=== PATIENT | female | born 1970 | race Caucasian/White ===

== ENCOUNTER 2024-11-26 21:50 | Emergency (ER) | payer MEDICAID, SELFPAY ==
--- NOTE | 2024-11-26 21:52 | EKG_ITS ---
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
[2024-11-26 22:03] VITALS: BP 143/86; PULSE 92; RESP 20; TEMP 36.8; O2SAT 96; BMI 33.1
--- NOTE | 2024-11-26 22:07 | XR_ITS ---
Examination: PA lateral chest 2 views TECHNIQUE: Upright PA and lateral chest 2 views Date and time: November 26, 2024, 10:17 PM Comparison July 19, 2013. INDICATIONS: Chest pain today. FINDINGS: Normal heart size Increased AP dimension chest with mild hyperexpansion. Small retrocardiac gastric hernia. Mild kyphosis dorsal spine. No pneumonia or pulmonary edema. IMPRESSION: Mild hyperexpansion. No pneumonia or pulmonary edema
--- NOTE | 2024-11-26 22:13 | PD.EDCHEST ---
ED Chest Pain RME/HPI General Chief Complaint: Chest Pain Stated Complaint: CHEST/EPIGASTRIC PAIN RADIATING TO BACK Time Seen by Provider: 11/26/24 21:57 Arrival date/time: 11/26/24 21:50 RME / HPI RME / HPI narrative: The patient is a 54-year-old female with significant past medical history of hypertension, MVP, s/p gastric bypass surgery, past medical history of diabetes mellitus type 2 resolved after gastric bypass surgery, and gastric upset presented to ED with chief complaint of lower chest pain for past 30 minutes. The patient reported that her pain is 8/10 in intensity, radiating to the back and left shoulder, associated with gastric upset and mild dizziness. The patient denied any headache, SOB, sore throat, lower abdominal pain, any changes in bowel or bladder habit, nausea or vomiting, fever or chills. Related Data Home Medications ?Medication ?Instructions ?Recorded ?Confirmed atenolol 25 mg tablet 25 mg PO QDAY #0 tabs 06/23/15 02/23/18 venlafaxine 75 mg capsule,extended 75 mg PO QDAY 01/28/18 02/23/18 release 24 hr (Effexor XR) ziprasidone HCl 20 mg capsule 20 mg PO BID 01/28/18 02/23/18 (Geodon) Previous Rx's ?Medication ?Instructions ?Recorded omeprazole 20 mg capsule,delayed 20 mg PO QDAY #30 caps 01/28/18 release dicyclomine 20 mg tablet 20 mg PO QID PRN abdominal pain 01/20/24 #14 tabs ondansetron 4 mg disintegrating 4 mg PO TID PRN nausea and 01/20/24 tablet vomiting #14 tabs pantoprazole 40 mg tablet,delayed 40 mg PO QDAY #28 tabs 11/27/24 release Allergies Allergy/AdvReac Type Severity Reaction Status Date / Time No Known Allergies Allergy Verified 11/26/24 21:52 Review of Systems Review of Systems Systems Reviewed: All systems reviewed, normal except as documented ED Exam Narrative Physical exam: General: Middle-aged, cooperative female, no acute distress, Alert and Oriented x 3, appeared in pain HEENT: Moist mucous membranes, oropharynx clear Neck: Supple, No masses, No JVD CVS: S1S2 Regular rate and rhythm, No murmurs, rubs or gallops Lungs: Clear to auscultation with no accessory use, no wheeze no rhonchi Abd: Soft, NT/ND, +BS, no organomegaly Ext: No edema, warm and well perfused Skin: No rash Psych: Appeared in pain Course Quality Measures none Orders Category Date Time Status EKG (ED ONLY) *Do not use* NOW Care 11/26/24 21:52 Completed EKG (ED ONLY) *Do not use* NOW Care 11/26/24 22:13 Completed EKG (ED Only) Stat Exams 11/26/24 21:52 Draft EKG (ED Only) Stat Exams 11/26/24 22:12 Ordered XR chest 2V Stat Exams 11/26/24 22:07 Completed B-Type Natriuretic Peptide Stat Lab 11/26/24 22:15 Completed CBC Stat Lab 11/26/24 22:15 Completed Comprehensive Metabolic Panel Stat Lab 11/26/24 22:15 Completed Drug Screen,Urine Stat Lab 11/26/24 23:40 Completed LDH (Lactate Dehydrogenase) Stat Lab 11/26/24 22:15 Completed Magnesium Stat Lab 11/26/24 22:15 Completed Partial Thromboplastin Time Stat Lab 11/26/24 22:15 Completed Prothrombin Time with INR Stat Lab 11/26/24 22:15 Completed Troponin I Stat Lab 11/26/24 22:15 Completed Urinalysis Stat Lab 11/26/24 23:40 Completed Pantoprazole Inj [Protonix Inj] Med 11/26/24 22:08 Discontinued 40 mg IVP X1 ONE Pantoprazole [Protonix] Med 11/26/24 23:09 Discontinued 40 mg PO X1 ONE Vital Signs Vital signs: Vital Signs Temperature 98.3 F 11/26/24 22:03 Pulse Rate 92 11/26/24 22:03 Respiratory Rate 20 11/26/24 22:03 Blood Pressure 143/86 H 11/26/24 22:03 Pulse Oximetry (%) 96 11/26/24 22:03 Oxygen Delivery Method Room Air 11/26/24 22:03 Chest Pain MDM Narrative MDM Narrative:: The patient is a 54-year-old female with significant past medical history of hypertension, MVP, s/p gastric bypass surgery, past medical history of diabetes mellitus type 2 resolved after gastric bypass surgery, and gastric upset presented to ED with chief complaint of lower chest and epigastric pain for past 30 minutes. The patient reported that her pain is 8/10 in intensity, radiating to the back and left shoulder, associated with gastric upset and mild dizziness. The patient denied any headache, SOB, sore throat, lower abdominal pain, any changes in bowel or bladder habit, nausea or vomiting, fever or chills. Her vitals were significant for BP 143/86, pulse 92, RR 20, temperature 98.3, saturating 96% on room air. Labs revealed CBC fairly stable, coagulation panel WNL, CMP fairly stable with AST 68, LDH 199, troponin less than 0.002, BNP less than 20, UA revealed turbid urine, leukocyte esterase positive, WBC 15, urine bacteria 3+ but denied any urinary symptoms, U-Tox of positive for methamphetamine. EKG revealed sinus rhythm, chest x-ray revealed mild hyperexpansion, but negative for CHF or pneumonia. Patient data External records reviewed:: [facility] previous records Clinical information provided by:: patient Social determinants that could affect healthcare access:: none Patient has the following chronic illnesses:: See above How is presenting disease/condition affected by chronic disease/condition?: caused by Evaluation data The following diagnostics were reviewed and interpreted by me:: lab results, radiology exam(s) and EKG tracing(s) Lab and/or radiology exams considered but not ordered:: None Interpretation Summary: See above Medications / Prescriptions Medications or Prescriptions considered but not ordered:: None Medication administrations:: Medication Administration History Discontinued Medications Pantoprazole Sodium (Pantoprazole Inj 40 Mg Vial) 40 mg IVP X1 ONE Stop: 11/26/24 22:09 Last Admin: 11/26/24 23:25 Dose: Not Given Documented By: Non-Admin Reason: Cancelled by Provider Pantoprazole Sodium (Pantoprazole 40 Mg Tablet) 40 mg PO X1 ONE Stop: 11/26/24 23:10 Last Admin: 11/26/24 23:23 Dose: 40 mg Documented By: See above Consultations Consultation(s) initiated? (list below): No Diagnosis Chest Pain Differential Diagnosis: pneumothorax, stable angina, atypical chest pain, costochondritis and other Most likely diagnosis given after review of the tests above:: Retrocardiac gastric hernia Admission Indicated Admission indicated?: not indicated Admission Request Was there a request for admission?: No Disposition Plan Disposition Plan: Discharge Discharge Attestation Discharge Attestation: The patient and all family members were given an opportunity to ask questions and understood the discharge instructions. Discharge instructions specifically effects, indications for sooner follow up or return to the emergency department, and the expected course of current diagnosis. Patient condition: Stable Discharge Plan Plan Patient Disposition: HOME (Self Care) Prescriptions/Referrals Prescriptions/Med Rec: New pantoprazole 40 mg tablet,delayed release (DR/EC) 40 mg PO QDAY Qty: 28 0RF No Action atenolol 25 mg Tablet 25 mg PO QDAY Qty: 0 venlafaxine [Effexor XR] 75 mg Capsule,Extended Release 24hr 75 mg PO QDAY ziprasidone HCl [Geodon] 20 mg Capsule 20 mg PO BID omeprazole 20 mg capsule,delayed release(DR/EC) 20 mg PO QDAY Qty: 30 0RF Rx Instructions: swallow whole; do not crush, chew, dissolve, cut, break dicyclomine 20 mg tablet 20 mg PO QID PRN (Reason: abdominal pain) Qty: 14 0RF ondansetron 4 mg tablet,disintegrating 4 mg PO TID PRN (Reason: nausea and vomiting) Qty: 14 0RF Referrals: Gilbert Negron PA-C [Primary Care Provider] - In 1 week Problem List Clinical Impression: Thoracic stomach hernia, Methamphetamine abuse Patient/Caregiver Discharge Instructions Discharge Activity: activity as tolerated Education Materials: Addiction: Getting Help, Understanding Methamphetamine ..., ED Hiatal Hernia Additional Instructions: Please follow-up with your PCP within 1 week of discharge You have been started on: - Pantoprazole 40mg daily for 28 days -Recommended to return back to emergency department if your symptoms persists or worsens Print Language: [place]ese Stand Alone Forms: Georgina Award Info., Patient Portal Info Letter MD Attestation Attestation I, Dr. Coe, have reviewed the history, exam, and assessment of the patient. I have evaluated the patient independently and agree with the plan of care documented by the resident Dr. Agee. All diagnostic studies were reviewed and discussed. I confirm the diagnosis as documented by the resident. I was present during the Medical Decision Making for this patient. The patient?s plan of care was created between myself and the resident and consistent with our discussion of the patient?s case.
[2024-11-26 22:23] LABS: Basophils % (Auto) 1 % (0-2.5); Eosinophils # (Auto) 0.1 Thou/mm3 (0.0-0.5); Eosinophils % (Auto) 2 % (0-10); Hematocrit 35.5 % (36.0-46.0); Hemoglobin 12.7 g/dL (12.0-16.0); Immature Granulocytes % (Auto) 0 % (0-0); Immature Granulocytes Auto 0.02 Thou/mm3 (0.00-0.00); Lymphocytes # (Auto) 1.6 Thou/mm3 (1.0-4.8); Lymphocytes % (Auto) 32 % (10-50); Mean Corpuscular HGB Conc 35.8 g/dl (31.0-37.0); Mean Corpuscular Hemoglobin 32.6 pg (25.0-35.0); Mean Corpuscular Volume 91 fL (80-100); Monocytes # (Auto) 0.4 Thou/mm3 (0.0-0.8); Monocytes % (Auto) 8 % (0-12); Neutrophils # (Auto) 2.8 Thou/mm3 (1.8-7.7); Neutrophils % (Auto) 56 % (37-80); Nucleated Red Blood Cell % 0 /100 WBC (0); Platelet Count 149 Thou/mm3 (140-440); RDW Standard Deviation 40.9 fL (36.4-46.3)
[2024-11-26 22:39] LABS: Partial Thromboplastin Time 26.3 Seconds (22.0-36.0); Prothrombin Time 11.2 Seconds (9.0-12.2)
[2024-11-26 22:46] LABS: Alanine Aminotransferase 44 U/L (10-49); Albumin, Serum 4.4 gm/dL (3.5-5.0); Albumin/Globulin Ratio 1.4 (1.2-2.2); Alkaline Phosphatase 93 U/L (46-116); Anion Gap 11 (7-16); Aspartate Amino Transferase 68 U/L (0-34); BUN/Creatinine Ratio 18 Ratio (12-20); Bilirubin,Total 0.6 mg/dL (0.3-1.2); Blood Urea Nitrogen 11 mg/dL (9-23); Calcium 8.6 mg/dL (8.3-10.6); Calcium (Corrected) 8.6 mg/dL (8.5-10.1); Carbon Dioxide 25.3 mMol/L (20.0-31.0); Chloride 106 mMol/L (98-107); Creatinine (Component) 0.6 mg/dL (0.6-1.3); Estimated Creatinine Clearance 117.6 mL/min (>60); Globulin 3.1 gm/dL (2.3-3.5); Glucose 104 mg/dL (74-106); LDH (Lactate Dehydrogenase) 199 U/L (120-246); Osmolality,Calculated 282 (275-295); Potassium 3.8 mMol/L (3.4-5.1); Sodium 142 mMol/L (136-145); Total Protein 7.5 gm/dL (5.7-8.2); Troponin I < 0.002 ng/mL (0.0-0.045); eGFR > 60 See Note
[2024-11-26 22:54] LABS: B-Type Natriuretic Peptide < 20 pg/mL (0-100)
[2024-11-26] MEDS: PANTOPRAZOLE 40 MG TABLET PO (23:23)
[2024-11-26 23:48] LABS: Collection Type, Urine Clean Catch
[2024-11-27 00:08] LABS: Amphetamine/Methamp Scrn,U Positive (Negative); Barbiturate Screen,Urine Negative (Negative); Benzodiazepines Screen,Urine Negative (Negative); Benzoylecgonine Screen, Ur Negative (Negative); Fentanyl Screen,Urine Negative (Negative); Opiate Screen,Urine Negative (Negative); THC Screen,Urine Negative (Negative)
[2024-11-27 00:10] LABS: Bilirubin,Urine Negative (Negative); Blood,Urine Negative (Negative); Clarity,Urine Turbid (Clear/Hazy); Color,Urine Yellow (Lt Yel-Yel); Glucose, Urine Negative (Negative); Ketones,Urine Negative (Negative); Leukocyte Esterase,Urine Positive (Negative); Nitrite,Urine Negative (Negative); PH,Urine 5.5 (5.0-7.0); Protein,Urine Negative (Neg - Trace); Specific Gravity,Urine 1.024 (1.001-1.035)
[2024-11-27 00:14] LABS: WBC,Urine 15 /hpf (0-5)
[2024-11-27 00:15] LABS: Bacteria,Urine 3+; RBC,Urine 3 /hpf (0-3); Squamous Epithelial Cell,Urine 24 /hpf (0-5)
== END 2024-11-27 03:22 | disposition home or self-care (01) ==
PROVIDERS: Emergency Provider Student in an Organized Health Care Education/Training Program; PCP Physician Assistant
DX: K44.9 Diaphragmatic hernia without obstruction or gangrene (principal); F15.10 Other stimulant abuse, uncomplicated
CPT/HCPCS: 36415; 71046; 80053; 80307; 81001; 83615; 83735; 83880; 84484; 85025; 85610; 85730; 93005; 99283; A9270

== ENCOUNTER 2025-03-07 16:09 | Emergency (ER) | payer MEDICAID, SELFPAY ==
[2025-03-07 16:12] VITALS: PULSE 110
--- NOTE | 2025-03-07 16:16 | EKG_ITS ---
[facility] Test Date: 2025-03-07 Pat Name: SONY CATALAN Department: Room: - Gender: Female General Practice: : 1970 Requested By: ED Temporary Provider Order Number: [id number] Reading MD: ED Temporary Provider Measurements Intervals [place] Rate: 100 P: -7 [place]: 152 QRS: -15 QRSD: 98 T: -1 QT: 343 QTc: 444 Interpretive Statements SINUS TACHYCARDIA MODERATE VOLTAGE CRITERIA FOR LVH, CONSIDER NORMAL VARIANT [MEETS CRITERIA IN ONE OF: R(aVL), S(V1), R(V5), R(V5/V6)+S(V1)] ABNORMAL RHYTHM ECG Compared to ECG 11/26/2024 22:06:40 Sinus rhythm no longer present /store/S0/[id number]
[2025-03-07 16:26] VITALS: BP 150/90; PULSE 100; RESP 18; TEMP 36.9; O2SAT 98
[2025-03-07] MEDS: ONDANSETRON ODT 4 MG TABRAP PO (16:44)
[2025-03-07 17:10] LABS: Basophils # (Auto) 0.1 Thou/mm3 (0.0-0.2); Basophils % (Auto) 1 % (0-2.5); Eosinophils # (Auto) 0.1 Thou/mm3 (0.0-0.5); Eosinophils % (Auto) 2 % (0-10); Hematocrit 42.4 % (36.0-46.0); Hemoglobin 14.8 g/dL (12.0-16.0); Immature Granulocytes Auto 0.01 Thou/mm3 (0.00-0.00); Lymphocytes # (Auto) 1.7 Thou/mm3 (1.0-4.8); Lymphocytes % (Auto) 36 % (10-50); Mean Corpuscular HGB Conc 34.9 g/dl (31.0-37.0); Mean Corpuscular Hemoglobin 32.7 pg (25.0-35.0); Mean Corpuscular Volume 94 fL (80-100); Monocytes # (Auto) 0.4 Thou/mm3 (0.0-0.8); Monocytes % (Auto) 9 % (0-12); Neutrophils # (Auto) 2.5 Thou/mm3 (1.8-7.7); Neutrophils % (Auto) 52 % (37-80); Nucleated Red Blood Cell # 0.00 Thou/mm3 (0.00-0.00); Nucleated Red Blood Cell % 0 /100 WBC (0); Platelet Count 182 Thou/mm3 (140-440); RDW Standard Deviation 44.8 fL (36.4-46.3); Red Blood Count 4.53 Miln/mm3 (4.00-5.20); White Blood Count 4.8 Thou/mm3 (3.6-11.0)
[2025-03-07 17:33] LABS: Alanine Aminotransferase 66 U/L (10-49); Albumin, Serum 4.7 gm/dL (3.5-5.0); Albumin/Globulin Ratio 1.5 (1.2-2.2); Alkaline Phosphatase 102 U/L (46-116); Anion Gap 15 (7-16); Aspartate Amino Transferase 103 U/L (0-34); BUN/Creatinine Ratio 10 Ratio (12-20); Bilirubin,Total 1.0 mg/dL (0.3-1.2); Blood Urea Nitrogen 8 mg/dL (9-23); Calcium 10.2 mg/dL (8.3-10.6); Calcium (Corrected) 10.2 mg/dL (8.5-10.1); Carbon Dioxide 24.1 mMol/L (20.0-31.0); Chloride 104 mMol/L (98-107); Creatine Kinase 61 U/L (34-171); Creatinine (Component) 0.8 mg/dL (0.6-1.3); Globulin 3.2 gm/dL (2.3-3.5); Glucose 98 mg/dL (74-106); Osmolality,Calculated 283 (275-295); Potassium 4.0 mMol/L (3.4-5.1); Sodium 143 mMol/L (136-145); Total Protein 7.9 gm/dL (5.7-8.2); eGFR > 60 See Note
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
== END 2025-03-07 21:00 | disposition home or self-care (01) ==
PROVIDERS: Emergency Provider Emergency Medicine; PCP Family Medicine
DX: E86.0 Dehydration (principal); Z59.00 Homelessness unspecified; I34.1 Nonrheumatic mitral (valve) prolapse
CPT/HCPCS: 36415; 80053; 81001; 82550; 85025; 93005; 99283; Q0162

== ENCOUNTER 2025-05-24 18:35 | Emergency (ER) | payer MEDICAID, SELFPAY ==
[2025-05-24 19:41] VITALS: BP 141/91; PULSE 88; RESP 18; TEMP 36.8; O2SAT 96; BMI 31.6
--- NOTE | 2025-05-24 19:49 | XR_ITS ---
Examination: Hand, right 3 views Technique: Hand AP, oblique, lateral 3 views Date and time of exam: May 24, 2025, 2007 hours INDICATIONS: Dog bite to the hand today, pain and swelling. FINDINGS: No fracture. No dislocation No opaque foreign body IMPRESSION: No opaque foreign body
[2025-05-24] MEDS: HYDROcodone/APAP 5/325 TABLET 1 TAB PO (19:56)
[2025-05-24] MEDS: AMOXICILLIN/POT CLAV 875 TABLET 1 TAB PO (19:56)
[2025-05-24] MEDS: DIPHTH,PERTUSS(ACELL),TET VAC 0.5 ML SYR- ADULT IMi (19:57)
--- NOTE | 2025-05-24 20:45 | PD.EDHAND ---
Upper Extremity Injury RME/HPI General Chief Complaint: Hand/Wrist Problems Stated Complaint: RIGHT HAND INJURY,BITE FROM DOG TO LEFT HAND Time Seen by Provider: 05/24/25 19:49 Arrival date/time: 05/24/25 18:35 51F with history of DM and psych presents to ED with R hand (that radiates up) pain after she was tried to break apart a dog fight between her dog and another dog. She got bit on her L hand. Patient has not had a tetanus shot in the past 5 years. Limitations: no limitations Related Data Home Medications ?Medication ?Instructions ?Recorded ?Confirmed atenolol 25 mg tablet 25 mg PO QDAY #0 tabs 06/23/15 02/23/18 venlafaxine 75 mg capsule,extended 75 mg PO QDAY 01/28/18 02/23/18 release 24 hr (Effexor XR) ziprasidone HCl 20 mg capsule 20 mg PO BID 01/28/18 02/23/18 (Geodon) Previous Rx's ?Medication ?Instructions ?Recorded omeprazole 20 mg capsule,delayed 20 mg PO QDAY #30 caps 01/28/18 release dicyclomine 20 mg tablet 20 mg PO QID PRN abdominal pain 01/20/24 #14 tabs ondansetron 4 mg disintegrating 4 mg PO TID PRN nausea and 01/20/24 tablet vomiting #14 tabs pantoprazole 40 mg tablet,delayed 40 mg PO QDAY #28 tabs 11/27/24 release amoxicillin 875 mg-potassium 1 tab PO BID 7 days #14 tabs 05/24/25 clavulanate 125 mg tablet hydrocodone 5 mg-acetaminophen 325 1 tab PO BID PRN pain #7 tabs 05/24/25 mg tablet Allergies Allergy/AdvReac Type Severity Reaction Status Date / Time No Known Allergies Allergy Verified 05/24/25 18:38 Review of Systems Review of Systems Systems Reviewed: All systems reviewed, normal except as documented Musculoskeletal Musculoskeletal: Reports as per HPI and Reports arthralgias Integumentary/Breasts Skin/Breast: Reports as per HPI and Reports skin pain Past Medical History Past Medical History CARDIAC: Positive Cardiac Disorders and Hypertension; Negative Congestive Heart Failure RESPIRATORY: Negative Chronic Obstructive Pulmonary Disease (COPD) or Asthma GASTROINTESTINAL: Positive Obesity GENITOURINARY: Negative Renal Disease ENDOCRINE: Negative Diabetes Mellitus Type 1 or Diabetes Mellitus Type 2 HEMATOLOGIC: Negative Sickle Cell Disease PSYCHO/SOCIAL: Positive Depression and Anxiety Surgical History SURGICAL: Positive Abdominal Surgery, Gastric Bypass Surgery and Hysterectomy Social History SMOKING STATUS: Former smoker SUBSTANCE USE: methamphetamine ED Exam General Limitations: Present no limitations General appearance: Present alert and in no apparent distress Head Head exam: Present atraumatic Neck Neck exam: Present normal inspection, full ROM and trachea midline Chest Chest inspection: Present normal inspection and symmetric chest wall rise Expanded Upper Extremity Exam Hand exam: Present full ROM, laceration (L hand; more puncture wound) and deformity (R thumb) Neurological Exam Neurological exam: Present alert and oriented X3 Psychiatric Psychiatric exam: Present normal affect and normal mood Skin Skin exam: Present warm, dry, intact and normal color Course Quality Measures none Orders Category Date Time Status Wound Care NOW Care 05/24/25 19:49 Active sling [Splint / Immobilizer] STAT Care 05/24/25 21:16 Active XR hand comp RT min 3V Stat Exams 05/24/25 19:49 Completed Amoxicillin/Pot Clav 875 [Augmentin 875] Med 05/24/25 19:49 Discontinued 1 tab PO X1 ONE HYDROcodone*/APAP 5/325 [[place] 5/325] Med 05/24/25 19:49 Discontinued 1 tab PO X1 ONE TET,DIP/PERT AC (Adult)-Tdap [Boostrix Adult (Tdap) Med 05/24/25 19:49 Discontinued Vacc] 0.5 ml IMI .ONCE ONE Vital Signs Vital signs: Vital Signs Temperature 98.3 F 05/24/25 19:41 Pulse Rate 88 05/24/25 19:41 Respiratory Rate 18 05/24/25 19:41 Blood Pressure 141/91 H 05/24/25 19:41 Pulse Oximetry (%) 96 05/24/25 19:41 Oxygen Delivery Method Room Air 05/24/25 19:41 O2 at 96% on RA and WNLs Extremity Injury MDM Narrative MDM Narrative:: 51F with history of DM and psych presents to ED with R hand (that radiates up) pain after she was tried to break apart a dog fight between her dog and another dog. She got bit on her L hand. Patient has not had a tetanus shot in the past 5 years. Physical exam reveals R hand deformity, primarily around thumb. However, when compression of proximal RUE, there is some pain radiation to R pinky, but no tenderness at site of compression. ROM limited. Small puncture wound on L hand. XR reveals no fx or dislocation. Patient clarified she's unable to feel her R pinky/ring finger since previous injury on proximal RUE. Repeat physical exam reveals normal color and intact cap refill. Wound cleaned/bandaged. Given Tdap, ABX prophylaxis, sling, counselor camp and pain control. Counseled may need MRI for possible exacerbation of previous jury of distal RUE. Patient data External records reviewed:: [facility] previous records Clinical information provided by:: patient Social determinants that could affect healthcare access:: mental health Patient has the following chronic illnesses:: DM How is presenting disease/condition affected by chronic disease/condition?: exacerbated by Evaluation data The following diagnostics were reviewed and interpreted by me:: radiology exam(s) Lab and/or radiology exams considered but not ordered:: ordered Interpretation Summary: above Medications / Prescriptions Medications or Prescriptions considered but not ordered:: ordered Medication administrations:: Medication Administration History Discontinued Medications Hydrocodone Bitart/Acetaminophen (Hydrocodone/Apap 5/325 Tablet) 1 tab PO X1 ONE Stop: 05/24/25 19:50 Last Admin: 05/24/25 19:56 Dose: 1 tab Documented By: SARA Amoxicillin/Clavulanate Potassium (Amoxicillin/Pot Clav 875 Tablet) 1 tab PO X1 ONE Stop: 05/24/25 19:50 Last Admin: 05/24/25 19:56 Dose: 1 tab Documented By: SARA Diphtheria/Tetanus/Acell Pertussis (Diphth,Pertuss(Acell),Tet Vac 0.5 Ml Syr- Adult) 0.5 ml IMi .ONCE ONE Stop: 05/24/25 19:50 Last Admin: 05/24/25 19:57 Dose: 0.5 ml Documented By: SARA above Consultations Consultation(s) initiated? (list below): No Diagnosis Upper Extremity Injury Differential Diagnosis: sprain and strain of wrist, fracture of wrist, finger sprain, dislocation of finger, Colles' fracture, fracture of hand, dislocation of shoulder, fracture of humerus, fracture of clavicle and other (dog bite, soft tissue injury) Most likely diagnosis given after review of the tests above:: dog bite and soft tissue injury Admission Indicated Admission indicated?: not indicated Admission Request Was there a request for admission?: No Disposition Plan Disposition Plan: Discharge Discharge Attestation Discharge Attestation: The patient and all family members were given an opportunity to ask questions and understood the discharge instructions. Discharge instructions specifically effects, indications for sooner follow up or return to the emergency department, and the expected course of current diagnosis. Patient condition: Stable Discharge Plan Plan Patient Disposition: HOME (Self Care) Discharge Disposition comment: Stable Prescriptions/Referrals Prescriptions/Med Rec: New amoxicillin-pot clavulanate 875-125 mg tablet 1 tab PO BID 7 Days Qty: 14 0RF hydrocodone-acetaminophen 5-325 mg tablet 1 tab PO BID MDD 2 PRN (Reason: pain) Qty: 7 0RF No Action atenolol 25 mg Tablet 25 mg PO QDAY Qty: 0 venlafaxine [Effexor XR] 75 mg Capsule,Extended Release 24hr 75 mg PO QDAY ziprasidone HCl [Geodon] 20 mg Capsule 20 mg PO BID omeprazole 20 mg capsule,delayed release(DR/EC) 20 mg PO QDAY Qty: 30 0RF Rx Instructions: swallow whole; do not crush, chew, dissolve, cut, break dicyclomine 20 mg tablet 20 mg PO QID PRN (Reason: abdominal pain) Qty: 14 0RF ondansetron 4 mg tablet,disintegrating 4 mg PO TID PRN (Reason: nausea and vomiting) Qty: 14 0RF pantoprazole 40 mg tablet,delayed release (DR/EC) 40 mg PO QDAY Qty: 28 0RF Referrals: Adam Negron PA-C [Primary Care Provider] - In 1 week Problem List Clinical Impression: Dog bite, Soft tissue injury Patient/Caregiver Discharge Instructions Education Materials: ED Dog Bite, ED Muscle Strain, Extremity Additional Instructions: Please follow-up with PCP within 24-48 hours and return immediately if symptoms worsen. If problem persists, recommend outpatient PT and/or MRI follow-up. In the meantime, rest, use ice/heat, and/or compression. Print Language: [place] Stand Alone Forms: Patient Portal Info Letter BAMBI/XIOMARA Supervising Physician BAMBI/XIOMARA Supervising Physician: Dr. Stein
== END 2025-05-24 21:31 | disposition home or self-care (01) ==
PROVIDERS: Emergency Provider Emergency Medicine; PCP Physician Assistant
DX: S61.451A Open bite of right hand, initial encounter (principal); W54.0XXA Bitten by dog, initial encounter; Z23 Encounter for immunization
CPT/HCPCS: 73130; 90471; 90715; 99283; A9270